=== PATIENT | male | born 1970 | race Caucasian/White ===

== ENCOUNTER 2017-05-09 08:28 | Emergency (ER) | payer OTHER ==
[~2017-05-09] VITALS: Ht 190.5 cm; Wt 99.1 kg
[2017-05-09] MEDS ORDERED: VYTORIN 10 MG-11 TAB PO (08:40)
[2017-05-09] MEDS ORDERED: PRILOSEC 20MG20 MG PO (08:41)
[2017-05-09] MEDS ORDERED: MULTIPLE VITAMI1 TA1 PO (08:41)
[2017-05-09] MEDS ORDERED: ALLEGRA 60MG TA60 MG PO (08:41)
[2017-05-09 08:42] VITALS: TEMP 97.9
[2017-05-09 09:06] LABS: BASO # 0.1 (0.0-0.2); EOS # 0.1 (0.0-0.7); GRAN # 3.3 (1.4-6.5); HEMATOCRIT 44.7 % (42.0-52.0); HEMOGLOBIN 15.2 g/dl (13.5-18.0); LYMPH # 1.2 (1.2-3.4); LYMPH % 24.1 % (20.0-51.0); MEAN CELL VOLUME 84 fl (80.0-100.0); MEAN CORPUSCULAR HEMOGLOBIN 29 pg (27.0-31.0); MEAN CORPUSCULAR HGB CONC 34 g/dl (33.0-37.0); MEAN PLATELET VOLUME 11.2 fl (7.4-10.4); MONO # 0.3 (0.1-0.6); MONO % 6.5 % (1.7-9.3); PLATELET COUNT 145 K/mm3 (130-400); RED BLOOD COUNT 5.33 M/mm3 (4.20-5.60); REDCELL DISTRIBUTION WIDTH-CV 12.4 % (11.5-14.5); WHITE BLOOD COUNT 5.1 K/mm3 (4.8-10.8)
[2017-05-09 09:10] LABS: ADJUSTED CALCIUM 8.9 mg/dL (8.4-10.2); ALBUMIN 3.9 gm/dL (3.5-5.0); BILIRUBIN,TOTAL 1.3 mg/dL (0.0-1.0); CALCIUM 8.8 mg/dL (8.4-10.2); CREATININE, serum 1.32 mg/dL (0.66-1.25); POTASSIUM 4.3 mmol/L (3.4-5.0); TOTAL PROTEIN 6.8 gm/dL (6.4-8.2)
[2017-05-09 09:55] VITALS: BP 136/79; PULSE 72
== END 2017-05-09 10:04 | disposition short-term general hospital (02) ==
LOC: COL.ER 08:28
PROVIDERS: Emergency Medicine
DX: S09.90XA Unspecified injury of head, initial encounter (principal); M25.512 Pain in left shoulder; M79.642 Pain in left hand; M25.531 Pain in right wrist; M79.631 Pain in right forearm; M79.621 Pain in right upper arm; S61.211A Laceration without foreign body of left index finger without damage to nail, initial encounter; S11.91XA Laceration without foreign body of unspecified part of neck, initial encounter; S01.81XA Laceration without foreign body of other part of head, initial encounter; M54.6 Pain in thoracic spine; M54.5 Low back pain; V13.4XXA Pedal cycle driver injured in collision with car, pick-up truck or van in traffic accident, initial encounter; R41.82 Altered mental status, unspecified; Y92.414 Local residential or business street as the place of occurrence of the external cause; R07.89 Other chest pain; R40.2362 Coma scale, best motor response, obeys commands, at arrival to emergency department; R40.2142 Coma scale, eyes open, spontaneous, at arrival to emergency department; R40.2242 Coma scale, best verbal response, confused conversation, at arrival to emergency department
CPT/HCPCS: J7030

== ENCOUNTER 2017-09-05 08:00 | Outpatient (RCR) | payer OTHER, BC ==
[~2017-09-05 08:00] MED LIST: ALLEGRA 60MG TA60 MG PO; MULTIPLE VITAMI1 TA1 PO; PRILOSEC 20MG20 MG PO; VYTORIN 10 MG-11 TAB PO
== END 2017-09-07 | disposition still patient (30) ==
LOC: WSPT
DX: M54.2 Cervicalgia (principal); M54.6 Pain in thoracic spine; M25.60 Stiffness of unspecified joint, not elsewhere classified

== ENCOUNTER 2018-03-21 08:00 | Outpatient (RCR) | payer OTHER, BC | END 2018-03-24 07:38 | disposition still patient (30) | LOC: WSPT 08:00 | DX: S43.402D Unspecified sprain of left shoulder joint, subsequent encounter (principal) ==